=== PATIENT | male | born 1955 | race Caucasian/White ===

== ENCOUNTER 2016-08-28 08:22 | Emergency (ER) | payer OTHER ==
[~2016-08-28] VITALS: Ht 172.7 cm; Wt 80.0 kg
[2016-08-28 08:27] VITALS: BP 155/103; PULSE 65; RESP 16; TEMP 97.9; O2SAT 98
[2016-08-28] MEDS ORDERED: PERC5TAB12 PO (08:41)
--- NOTE | 2016-08-28 08:54 | PD ---
HPI Chief Complaint: Musculoskeletal Complaint Time Seen by Provider: 08:36 Travel History International Travel<30 days: No Contact w/Intl Traveler<30days: No Traveled to known affect area: No History of Present Illness HPI This patient complains of right sided rib pain. Yesterday he fell 4 foot off a ladder and hit his right side. However, he was able to get up and ambulate around and actually didn't develop pain until several hours later. Now if he twists his torso or takes a deep breath he gets right sided rib pain. He does not have shortness of breath. If he is resting still he has no pain. Severity is moderate. Symptoms alleviated by rest and remaining motionless. Duration is one day. He did not strike his head. Has no head or neck pain. Denies other complaints and right rib cage pain. No abdominal pain. PFSH Past Medical History Medical History: Denies Significant Hx Influenza Vaccination: No Past Surgical History Surgical History: No Previous Surgery Social History Alcohol Use: No Tobacco Use: No Substance Use: No Allergies-Medications (Allergen,Severity, Reaction): Coded Allergies: Darvon (Verified Allergy, Unknown, 08/28/16) Tetanus Toxoid (Verified Allergy, Unknown, 08/28/16) Reported Meds & Prescriptions Reported Meds & Active Scripts Active Reported Percocet (Oxycodone-Acetaminophen) 5-325 mg Tab 1-2 Tab PO Q4H PRN Review of Systems General / Constitutional: No: Fever Eyes: No: Visual changes HENT: No: Headaches Cardiovascular: Positive: Chest Pain or Discomfort Respiratory: No: Shortness of Breath Gastrointestinal: No: Abdominal Pain Genitourinary: No: Dysuria Musculoskeletal: Positive: Pain Skin: No Rash Neurologic: No: Weakness Psychiatric: No: Depression Endocrine: No: Polydipsia Hematologic/Lymphatic: No: Easy Bruising Physical Exam Narrative GENERAL: Well-nourished, well-developed patient in no apparent distress. SKIN: Warm and dry. HEAD: Atraumatic. Normocephalic. EYES: Pupils equal and round. No scleral icterus. No injection or drainage. ENT: No nasal bleeding or discharge. Mucous membranes pink and moist. NECK: Trachea midline. No JVD. No midline tenderness CARDIOVASCULAR: Regular rate and rhythm. No murmur appreciated. RESPIRATORY: No accessory muscle use. Clear to auscultation. Breath sounds equal bilaterally. GASTROINTESTINAL: Abdomen soft, non-tender, nondistended. Hepatic and splenic margins not palpable. MUSCULOSKELETAL: No obvious deformities. No clubbing. No cyanosis. No edema. No tenderness of the spine. Range of motion of hips is normal. No long bone tenderness. He does have some point tenderness in the posterior axillary line to the mid right rib cage. There is no crepitus or bruising or paradoxical rib movement. NEUROLOGICAL: Awake and alert. No obvious cranial nerve deficits. Motor grossly within normal limits. Normal speech. PSYCHIATRIC: Appropriate mood and affect; insight and judgment normal. Data Data Last Documented VS Vital Signs Date Time Temp Pulse Resp B/P Pulse Ox O2 Delivery O2 Flow Rate FiO2 08/28/16 08:27 97.9 65 16 155/103 98 Orders Chest, Single Ap (08/28/16 ) [facility] Medical Decision Making Medical Screen Exam Complete: Yes Emergency Medical Condition: Yes Medical Record Reviewed: Yes Differential Diagnosis Rib fracture, contusion, pneumothorax Narrative Course I have reviewed the patient's electronic medical record. I reviewed his chest x-ray which is normal Abdomen is soft and benign and nontender. He is neurologically intact. He has Percocet at home which does help take away his pain He has a chest wall injury but I would expect gradual resolution over time Diagnosis Primary Impression: Contusion of right chest wall Qualified Code: S20.211A - Contusion of right chest wall, initial encounter Additional Instructions: The patient was advised to follow up with their physician and return if they worsen. The patient was warned about potential sedation for the medications they will receive on prescription. Med/Other Pt SpecificInfo: Other Disposition: 01 DISCHARGE HOME Condition: Stable Stephen Barrett MD Aug 28, 2016 08:54
--- NOTE | 2016-08-28 09:22 | RADHPO ---
EXAM DATE/TIME: 08/28/2016 09:07 [facility] COMPARISON: No previous studies available for comparison. INDICATIONS : Right side chest pain, fell yesterday MEDICAL HISTORY : None. SURGICAL HISTORY : None. ENCOUNTER: Initial ACUITY: 1 day PAIN SCORE: 10/10 LOCATION: Right chest FINDINGS: A single view of the chest demonstrates the lungs to be symmetrically aerated without evidence of mas s, infiltrate or effusion. The cardiomediastinal contours are unremarkable. Osseous structures are intact. There are some degenerative changes at the a.c. joints. There are some degenerative changes o f the thoracic spine. CONCLUSION: No acute intrathoracic disease. Chino Ramsey MD on August 28, 2016 at 9:21 Board Certified Radiologist. This report was verified electronically.
== END 2016-08-28 10:02 | disposition home or self-care (01) ==
LOC: PHED 08:22
DX: S20.211A Contusion of right front wall of thorax, initial encounter (principal); W11.XXXA Fall on and from ladder, initial encounter; Y99.8 Other external cause status
CPT/HCPCS: 71010; 99283